=== PATIENT | female | born 1955 | race Caucasian/White ===

== ENCOUNTER 2016-09-11 14:17 | Emergency (ER) | payer BC, OTHER ==
[2016-09-11] MEDS ORDERED: MORPHINE SULFATE 4 MG/ML SYRG IV ONE (14:20)
[2016-09-11] MEDS ORDERED: ONDANSETRON HCL/PF 2 MG/ML VIAL IV ONE (14:20)
[2016-09-11] MEDS ORDERED: ONDANSETRON HCL/PF 2 MG/ML VIAL ONE (14:21)
[2016-09-11] MEDS ORDERED: MORPHINE SULFATE 4 MG/ML SYRG ONE (14:21)
--- NOTE | 2016-09-11 14:21 | ERNOTE ---
Lower Extremity HPI - Narrative Date of Service: 09/11/16 - General Lower Extremities Pain: ankle: left Time Seen by Provider: 09/11/16 14:19 Source: patient, family, RN notes reviewed Exam Limitations: no limitations - Immun/Allergies/Home Medications Immunizations: IMMUNIZATION HX Immunizations Up to Date Yes Allergies/Adverse Reactions: Allergies Allergy/AdvReac Type Severity Reaction Status Date / Time No Known Allergies Allergy Unverified 09/11/16 14:19 Home Medications: HOME MEDICATIONS Ondansetron [Zofran Odt] 8 mg PO Q8H PRN #12 tab 09/11/16 [Last Taken Unknown] oxyCODONE HCL/ACETAMINOPHEN [Oxycodone-Acetaminophen 5-325] 1 - 2 each PO Q6H PRN #30 tablet 09/11/16 [Last Taken Unknown] - History of Present Illness Narrative: 60 y/o female brought to the ED by private vehicle with a left ankle injury. She slipped and fell on some wooden steps that were wet. This occurred at her daughter's home. She is not able to bear weight and the ankle is obviously deformed. Occurred: just prior to arrival Location of Incident: other Method of Injury: Reports: fell Reason for Fall: Reports: slipped Loss of Consciousness: Reports: no loss of consciousness Associated Symptoms: Reports: unable to bear weight, snapping. Denies: other injuries Review of Systems - Review of Systems Constitutional: Absent: recent illness, fever, malaise EYE: Present: no symptoms reported ENT: Present: no symptoms reported Respiratory: Absent: shortness of breath, cough Cardiology: Absent: chest pain, syncope Gastrointestinal/Abdominal: Present: nausea. Absent: vomiting Genitourinary: Present: no symptoms reported Musculoskeletal: Present: joint pain, joint swelling Skin: Absent: lesions, change in color Neurological: Absent: numbness, tingling Endocrine: Present: no symptoms reported Hematologic/Lymphatic: Absent: easy bruising, easy bleeding Psych: Present: no symptoms reported - Patient's Past Medical History Patient History - Medical: No pertinent hx Patient History - Cardiac/Respiratory: Sleep Apnea Patient History - Cancer: No Hx of Cancer Patient History - Surgical Procedures: ENT - Sleep apnea surgery Patient History - Other: None LMP (females 10-50): Menopausal - Social History Living Situations: home Smoking Status: Never smoker Alcohol Use: none Drug Use: none - Immunizations Immunizations Up to Date: Yes Physical Exam - Physical Exam General Appearance: Present: wd/wn, alert, moderate distress Eye Exam: Normal inspection: bilateral Respiratory: Present: no respiratory distress, no accessory muscle use Cardiovascular/Chest: Present: normal peripheral pulses Peripheral Pulses: N=norm/S=strong/W=weak/B=bound/A=absent: Dorsalis-pedis (R): Strong, Dorsalis-pedis (L): Strong Extremity Exam: Present: decreased range of motion - Left ankle, joint swelling - left ankle - medially, other - obvious deformity to left ankle, skin intact Neurological Exam: Present: alert, oriented, normal mood/affect, no motor/ sensory deficits Skin Exam: Present: normal color, warm/dry ED Progress - Vital Signs Patient's Vital Signs:: I have reviewed the patient's vital signs. - X-Ray X-Ray #1 X-Ray: ankle Interpretation: Reviewed by me X-ray Comments: Trimalleolar fracture of left ankle, mild displacement of fibula present X-Ray #2 X-Ray: tibula/fibula Interpretation: Reviewed by me X-ray Comments: Left, previously identified ankle fracture other craft no additional acute osseous abnormalities - Progress/Reassessment Chief Complaint: Lower Extremity Pain/ Injury Progress:: Improved Procedures Pre-Proc Neuro Vasc Exam: normal Hand-Made Type: ocl Splint: sugar-tong - with foot plate Alignment good: Yes Splint applied by: Nurse Post-Proc Neuro Vasc Exam: normal Complications: Pt omero procedure well Plan - Plan Plan: Xray results discussed with IQRA Gallardo, patient is to contact ortho office tomorrow morning for further instruction. To be NPO after midnight for likely surgical repair tomorrow. Patient verbalizes understanding. Departure Clinical Impression: Trimalleolar fracture of ankle, closed Qualifiers: Encounter type: initial encounter Laterality: left Qualified Code(s): S82.852A - Displaced trimalleolar fracture of left lower leg, initial encounter for closed fracture - Departure Disposition: Home Follow Up Needed Condition: Stable Instructions: Ankle Fracture, [id number] Additional Instructions: NO weight bearing on left foot Keep splint in place - ice and elevate Contact orthopedics tomorrow morning at 8:30 regarding follow-up Nothing to eat or drink after midnight tonight Referrals: Abdirizak Owens, PAC [[facility]] - Prescriptions: Ondansetron [Zofran Odt] 8 mg PO Q8H PRN #12 tab PRN Reason: Nausea oxyCODONE HCL/ACETAMINOPHEN [Oxycodone-Acetaminophen 5-325] 1 - 2 each PO Q6H PRN #30 tablet PRN Reason: Pain
[2016-09-11] MEDS ORDERED: HYDROmorphone HCL 1 MG/ML DISP.SYRIN IV ONE ×2 (14:36→15:30)
[2016-09-11] MEDS ORDERED: HYDROmorphone HCL 1 MG/ML DISP.SYRIN ONE ×2 (14:37→15:32)
[2016-09-11 16:09] VITALS: BP 107/74
== END 2016-09-11 16:00 | disposition home or self-care (01) ==
LOC: ER 14:17
PROC: 2W3RX1Z Immobilization of Left Lower Leg using Splint (ICD-10-PCS; principal; 2016-09-11)
DX: S82.852A Displaced trimalleolar fracture of left lower leg, initial encounter for closed fracture (principal); W10.2XXA Fall (on)(from) incline, initial encounter; Y93.9 Activity, unspecified; Y92.007 Garden or yard of unspecified non-institutional (private) residence as the place of occurrence of the external cause

== ENCOUNTER 2016-09-12 10:26 | Day surgery (SDC) | payer OTHER ==
[2016-09-12] MEDS ORDERED: ceFAZolin SODIUM 1 GM VIAL IV PRN (11:07)
[2016-09-12] MEDS ORDERED: RINGERS SOLUTION,LACTATED 1,000 ML IV PRN ×2 (11:07→15:44)
[2016-09-12] MEDS ORDERED: RINGERS SOLUTION,LACTATED 1,000 ML IV ONE ×2 (12:21→14:00)
[2016-09-12] MEDS ORDERED: BUPIVACAINE HCL 50 ML VIAL IJ ONE (14:30)
[2016-09-12] MEDS ORDERED: oxyCODONE HCL/ACETAMINOPHEN 1 TAB TABLET PO PRN (15:45)
[2016-09-12] MEDS ORDERED: HYDROmorphone HCL 2 MG/ML VIAL IV PRN (15:46)
[2016-09-12 17:46] VITALS: BP 134/57
--- NOTE | 2016-09-13 08:25 | OR ---
Operative Report - Dictated Report Narrative: Date: 09/12/2016 Surgeon: Baljit Navarro M.D. Barrel Inspector Tight: Abdirizak Owens PA-C Anesthesia: General plus local Preoperative diagnosis: Closed left trimalleolar ankle Fracture. Postoperative diagnosis: Closed left trimalleolar ankle Fracture. Procedure: 1. Open reduction internal fixation medial and lateral malleolus left ankle fracture. 2. Intra-operative interpretation of radiographs. 3. Closed treatment of posterior malleolus ankle fracture Estimated blood loss: None Tourniquet time: 74 Minutes at 275 millimeters mercury Retained implants: [employer] 2.4 mm titanium fully threaded cortical screws 4 in the fibula, Synthes titanium 3.0 mm cannulated partially threaded cancellus screws in the medial malleolus x 2 Specimens: None Complications: None Indications: Mrs. Macdonald is a 60-year-old female who twisted her ankle resulting in a injury to the left ankle. They were seen in the emergency department as well as the clinic with images obtained revealing the above injury. They were seen in clinic where the skin was examined and felt to be amenable to surgical treatment. The risks, benefits, and treatment options were discussed with the patient and the plan for open reduction internal fixation was discussed. She did report that she had notable nickel allergy and thus we discussed we would not recommend use of the stainless steel and thus adjustment was made to use titanium. Risks were reviewed including , blood clots, nerve/tendon/blood vessel injury, malunion, nonunion, failure of implants, prominent implants, arthrosis, persistent pain, need for additional procedures. Procedure: After a timeout, antibiotic consisting of Ancef was administered. Beanbag was utilized in order bump the operative leg and a well-padded tourniquet was applied to the operative thigh. The splint was removed and the leg was pre- scrubbed with chlorhexidine then prepped and draped in a standard sterile fashion. The extremity was exsanguinated and tourniquet was inflated. Initial attention was turned to the medial malleolus. A curvilinear incision was made over the anterior medial aspect of the distal tibia. Care was taken to protect the saphenous vein and nerve. The medial malleolus fracture was identified and the soft tissues elevated off the bony edges. Hematoma was evacuated from the fracture site. The joint was visualized and there appeared to be mild distal medial tibial impaction type chondral damage. The joint was thoroughly irrigated. Preliminary fixation with a reduction clamp was placed across the fracture of the medial malleolus. Attention was then turned to the lateral malleolus. A posterior lateral incision was made over the fibular fracture. Subcutaneous dissection was carried down to the fibula protecting the superficial peroneal nerve. The fracture was identified and was noted to be a long oblique posterior proximal to anterior distal. After preparing the bony edges and reducing the fracture, 2.4 mm titanium cortical screws using lag technique was utilized in order to stabilize the fracture. Mini C-arm was used in order to confirm the appropriate placement and length of the implants. Care was taken to avoid placing screws into the ankle joint and the syndesmosis. Once it was felt that the fibula was adequately stabilized we returned our attention to the medial malleolus. Two parallel guidewires were placed from the tip of the medial malleolus paralleling the anterior distal tibia within the confines of the distal tibial bone. These were measured, drilled, and sequentially tightened using 2 3.0 mm partially-threaded cancellus screws. This gave good stabilizations the medial malleolus fracture. The posterior malleolus was noted to be reduced and involved less than 10% of the articular surface once the medial and lateral malleolus were reduced and stabilized. There do not appear to be any subluxation or instability posteriorly. The ankle was then placed through a range of motion and had no significant crepitance. The syndesmosis was stressed and was noted to be stable. The mortise was symmetrical and intact. The wounds were then thoroughly irrigated. Half percent Marcaine without epinephrine was infused around the joint. Subcutaneous tissue was repaired over the implants utilizing 3-0 Vicryl and 4-0 Vicryl. The skin was closed utilizing 3-0 nylon and 4-0 nylon. Xeroform, 4 x 4 's, soft roll, and a well-padded AO splint was applied. Patient was then awoken and transferred to postanesthesia care in stable condition. All sponge, sharp, and instrument counts were correct prior to closing the wounds.
== END 2016-09-12 10:27 | disposition home or self-care (01) ==
LOC: AMB 10:26 → SUR 10:26 → AMB 10:27
PROVIDERS: ATTEND Orthopaedic Surgery
PROC: 0QSH04Z Reposition Left Tibia with Internal Fixation Device, Open Approach (ICD-10-PCS; 2016-09-12)
PROC: 0QSK04Z Reposition Left Fibula with Internal Fixation Device, Open Approach (ICD-10-PCS; principal; 2016-09-12 15:00)
DX: S82.852A Displaced trimalleolar fracture of left lower leg, initial encounter for closed fracture (principal); W10.8XXA Fall (on) (from) other stairs and steps, initial encounter; Z68.31 Body mass index [BMI] 31.0-31.9, adult